=== PATIENT | male | born 1940 | race Caucasian/White ===

== ENCOUNTER → 2019-11-10 08:11 | Outpatient (CLI) | payer MEDICARE ==
[2014-11-17 11:31] VITALS: BMI 27.8
[~2019-11-10 08:11] MED LIST: PRILOSEC20 MG PO
== END | disposition home or self-care (01) ==
LOC: D.HCCECHO 08:11
PROVIDERS: ATTEND Internal Medicine Cardiovascular Disease
DX: R01.1 Cardiac murmur, unspecified (principal); I20.9 Angina pectoris, unspecified

== ENCOUNTER 2019-11-18 12:03 | Outpatient (CLI) | payer MEDICARE ==
[~2019-11-18] VITALS: Ht 182.9 cm; Wt 94.8 kg
--- NOTE | ~2019-11-18 | HEMODYNAMI ---
PATIENT:MELANIE PORTER MEDICAL RECORD: [id number] : 42 LOCATION:[facility] ADMISSION DATE: 11/18/19 Generatedon:11/18/201916:29 Patient name: MELANIE PORTER Patient #: [id number] SSN: [id number] : 1940 Date of study: 11/18/2019 Page: Of Hemodynamic Procedure Report Patient Data Patient Demographics Procedure consent was obtained First Name: MELANIE Gender: Male Last Name: GERMAN : 1940 Patient #: [id number] Age: 79 year(s) Race: SSN: [id number] Additional ID: [id number] Contact details Address: [address] [address] State: [place]: [place] Zip code: [address] Past Medical History Allergies Allergen Reaction Date Comments Reported Aspirin 11/18/2019 Admission Admission Data Admission Date: 11/18/2019 Admission Time: 12:03 Arrival Date: 11/18/2019 Arrival Time: 0:00 Admit Source: Other Insurance Payor: Medicare [facility] #: [id number] Height (in.): 72 BSA: 2.17 (m2) Height (cm.): 182.88 BMI: 28.35 (kg/m2) Weight (lbs.): 209 Weight (kg.): 94.8 Lab Results Lab Result Date: 11/18/2019 Lab Result Time: 0:00 Biochemistry Name Units Result Min Max Creatinine mg/dl 1.1 --(--*-)-- 0.6 1.3 eGFR ml/min 69 *-(----)-- 90 120 NONAFRICAN CBC Name Units Result Min Max Hematocrit % 45.3 --(-*--)-- 42 54 Hemoglobin g/dl 15.1 --(-*--)-- 13.5 17.5 Procedure Procedure Types Cath Procedure Diagnostic Procedure LHC LH w/Coronaries Sedation Charges Moderate Sedation up to 15 minutes Procedure Description Procedure Date Procedure Date: 11/18/2019 Procedure Start Time: 16:19 Procedure End Time: 16:27 Procedure Staff Name Function John Parker MD Performing Physician Maegan Tucker RT Monitor Lavern Baker RT Scrub Tiffany Reese RN Nurse Procedure Data Cath Procedure Fluoroscopy Diagnostic fluoroscopy Total fluoroscopy Time: 0.9 time: 0.9 min min Diagnostic fluoroscopy Total fluoroscopy dose: 497 dose: 497 mGy mGy Contrast Material Contrast Material Type Amount (ml) Isovue 300 33 Entry Location Entry Primary Successful Side Size Upsize Upsize Entry Closure Head ccessful Closure Location (Fr) 1 (Fr) 2 (Fr) Remarks Device Remarks Radial Right 6 Fr Mechanical artery Short Compression Estimated blood loss: 10 ml Diagnostic catheters Device Type Used For End Catheter Placement DIAGNOSTIC [facility] 110cm 5 Ventriculography Fr catheter ([id number]) Procedure Complications No complications Procedure Medications Medication Administration Route Dosage 0.9% NaCl I.V. 100 ml/hr Oxygen etCO2 Nasal cannula 2 l/min Lidocaine 2% added to field 20 Heparin Flush Bag added to field 2 bags (1000units/500ml NS) Radial Cocktail added to field 1 syringe (Verapamil 2mg/Nitro 400mcg/Heparin 1500units) Versed I.V. 2 mg Fentanyl I.V. 50 mcg Hemodynamics Rest BSA: 2.17 (m2) O2 Consumption: Estimated: 286.06 (ml/min) O2 Consumption indexed : Estimated:131.82 (ml/min/m) Heart Rate: 116 (bpm) Pressure Samples Time Site Value (mmHg) Purpose Heart Use Rate(bpm) 16:23 LV 75/11,11 Snapshot 116 Gradients Valve Time Site Site Mean SEP/DFP Peak To Heart Use 1 2 (mmHg) (sec/min) Peak Rate (mmHg) (bpm) Aortic 16:23 LV AO 75 Snapshots Pre Cath Intra NCS Post Cath Vital Signs Time Heart Resp SPO2 etCO2 NIBP (mmHg) Rhythm Pain Sedation Rate (ipm) (%) (mmHg) Status Level (bpm) 16:06:47 54 15 98 17.9 Measuring SB 0 (11) 10(A) , No pain 16:07:02 54 15 97 13.4 142/83(120) SB 0 (11) 10(A) , No pain 16:11:24 53 10 98 15.6 141/82(122) SB 0 (11) 10(A) , No pain 16:15:42 52 12 98 33.5 145/84(108) SB 0 (11) 10(A) , No pain 16:19:50 52 13 97 19.3 125/82(103) SB 0 (11) 10(A) , No pain 16:24:10 55 13 98 31.3 105/70(84) SB 0 (11) 10(A) , No pain Medications Time Medication Route Dose Verified Delivered Reason Notes E ffectiveness by by 15:59:56 0.9% NaCl I.V. 100 John Allen used for ml/hr Keith Hugh procedure MD PEREZ 16:00:03 Oxygen etCO2 2 l/min John Guillena used for Nasal Keith Hugh procedure cannula MD PEREZ 16:00:09 Lidocaine 2% added 20ml John Lopez for local to vial [facility] anesthetic field MD MORE 16:00:12 Heparin Flush added 2 bags John Lopez used for Bag to [facility] procedure (1000units/500ml field MD MORE NS) 16:00:17 Radial Cocktail added 1 John Lopez used for (Verapamil to syringe [facility] procedure 2mg/Nitro field MD MORE 400mcg/Heparin 1500units) 16:13:48 Versed I.V. 2 mg John Tiffany for [facility] Angel Reese sedation MD PEREZ 16:13:55 Fentanyl I.V. 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 15:54:03 Lavern Baker RT(R) sent for patient. Start room use. 15:54:06 Time tracking: Regular hours (M-F 7:00 - 5:00) 15:54:10 Plan of Care:Hemodynamics will remain stable., Cardiac rhythm will remain stable., Comfort level will be maintained., Respiratory function will remain adequate., Patient/ family verbilizes understanding of procedure., Procedure tolerated without complication., Recovers from procedure without complications.. 15:54:17 Patient received from Pre/Post Procedure Room to [facility] 1 Alert and oriented. Tansferred to table in Supine position. 15:54:18 Warm blankets applied, and jose hugger turned on for patient comfort. 15:54:19 Correct patient and procedure confirmed by team. 15:54:19 ECG and BP/O2 sat monitors applied to patient. 15:54:22 Full Disclosure recording started 15:54:26 H&P Date Dictated: 11/18/2019 Within 30 days and on chart.. 15:54:28 Pre-procedure instructions explained to patient. 15:54:29 Pre-op teaching completed and patient verbalized understanding. 15:54:37 Family in patients room. 15:54:43 Patient NPO since Midnight. 15:54:58 Patient allergic to Aspirin 15:55:09 Is the patient allergic to Iodine/contrast media? No. 15:55:11 Was the patient premedicated? N/A 15:55:13 Is patient on blood thinner?No 15:55:57 Patient diabetic? No. 15:55:58 If diabetic: On Metformin? N/A 15:56:18 Previous problem with sedation/anesthesia? No ? 15:56:24 Snore? No 15:56:26 Sleep apnea? No 15:56:27 Deviated septum? No 15:56:29 Opens mouth fully? Yes 15:56:35 Sticks out tongue? Yes 15:56:37 Airway obstruction? No ? 15:56:40 Dentures? No ? 15:59:56 0.9% NaCl 100 ml/hr I.V. was administered by Tiffany Reese RN; used for procedure; Verbal order read back and verified. 16:00:03 Oxygen 2 l/min etCO2 Nasal cannula was administered by Tiffany Reese RN; used for procedure; Verbal order read back and verified. 16:00:09 Lidocaine 2% 20ml vial added to field was administered by John Parker MD; for local anesthetic; Verbal order read back and verified. 16:00:12 Heparin Flush Bag (1000units/500ml NS) 2 bags added to field was administered by John Parker MD; used for procedure; Verbal order read back and verified. 16:00:17 Radial Cocktail (Verapamil 2mg/Nitro 400mcg/Heparin 1500units) 1 syringe added to field was administered by John Parker MD; used for procedure; Verbal order read back and verified. 16:00:32 Pre procedure: right radial pulse 2+ Normal; easily identifiable; not easily obliterated 16:00:35 Modified Meir's test Radial < 7 seconds 16:00:38 Patient pain scale 0/10 ?. 16:00:47 IV patent on arrival in left hand with 0.9% NaCl at [facility]. 16:: Lab Result : Creatinine 1.1 mg/dl 16:: Lab Result : eGFR NONAFRICAN 69 ml/min 16:: Lab Result : Hematocrit 45.3 % 16:: Lab Result : Hemoglobin 15.1 g/dl 16:: Lab results completed and on chart. 16:01:40 Stress Test: no; N/A ? 16:01:47 Right Radial & Right Groin area was prepped with chlora-prep and draped in sterile fashion 16::48 Alarms reviewed by RJavier N. 16::48 Sharps counted by scrub and verified by R.N. 16::29 Arrival Date: 11/18/2019 12:00:00 AM 16:04:51 Insurance Payor : Medicare 16:04:52 Admit Source: Other 16:04:58 Vital chart was started 16:05:06 Patient Height : 72 inches 16:05:11 Patient Weight : 209 lbs 16:11:22 Diagnostic Cath Status : Elective 16:11:43 --------ALL STOP TIME OUT------ 16:11:44 Final Timeout: patient, procedure, and site verified with staff and physician. All members of the team are in agreement. 16:11:46 Right Radial & Right Groin site verified by team. 16:11:49 Fire Safety Assessment: A--An alcohol-based skin anteseptic being used preoperatively., C--Open oxygen or nitrous oxide is being used., D--An ESU, laser, or fiber-optic light is being used. 16:11:54 Physical assessment completed. ASA score P 2 - A patient with mild systemic disease as per John Parker MD. 16:12:11 2) 60-89 Mildly reduced kidney function, and other findings (as for stage 1) point to kidney disease. 16:12:14 Maximum allowable contrast dose (3.7 X eGFR X 0.75)191 ml. 16:12:19 Sedation plan: IV Moderate Sedation Medication:Versed, Fentanyl 16:12:48 Use device set Radial Dx or PCI 16:12:56 ACIST Syringe (01603) opened to sterile field. 16:12:57 Medline Cath Pack ([id number]) opened to sterile field. 16:12:57 Bag Decanter (2002) opened to sterile field. 16:12:58 ACIST Hand Control (22887) opened to sterile field. 16:12:58 ACIST Manifold (60260) opened to sterile field. 16:13:00 MBrace Wrist Support ([id number]) opened to sterile field. 16:13:04 EMERALD Guide Wire (502-904) opened to sterile field. 16:13:05 SHEATH 6FR RAIN (3703592) opened to sterile field. 16:13:48 Versed 2 mg I.V. was administered by Tiffany Reese RN; for sedation; Verbal order read back and verified. 16:13:55 Fentanyl 50 mcg I.V. was administered by Tiffany Reese RN; for sedation; Verbal order read back and verified. 16:18:00 Procedure started. 16:19:08 Local anesthetic to right radial artery with Lidocaine 2% by John Parker MD.INITIAL ACCESS ONLY 16:20:25 Zero performed for pressure channel P1 16:20:29 Zero performed for pressure channel P1 16:20:32 Zero performed for pressure channel P1 16:21:31 A 6 Fr Short sheath was inserted into the Right Radial artery 16:21:36 J wire advanced. 16:22:54 A DIAGNOSTIC [facility] 110cm 5 Fr catheter (563970) was advanced over the wire and used for Ventriculography. 16:23:29 LV angiography performed. 16:24:19 EF : 55 % 16:24:22 LCA angiography performed. 16:24:45 RCA angiography performed. 16:24:53 ZEPHYR REGULAR TR BAND (491451) opened to sterile field. 16:25:02 Catheter removed. 16:25:19 Sheath removed intact; hemostasis achieved with Mechanical Compression to the Right Radial artery. 16:25:23 Procedure ended.(Physican Out) 16:25:39 Fluoroscopy time 00.90 minutes. 16:25:43 Fluoroscopy dose: 497 mGy 16:25:43 Flurop Dose total: 497 16:25:48 Dose Area Product 20030 mGy/cm. 16:25:51 Contrast amount:Isovue 300 33ml. 16:25:53 Maximum allowable dose exceeded? No. 16:25:55 Sharps counted by scrub and verified by R.N. 16:25:57 Jefferson band inflated with 10cc of air. 16:26:07 Post Procedure Pulses reassessed and unchanged 16:26:11 Post-procedure physical assessment completed. ASA score P 2 - A patient with mild systemic disease as per John Parker MD. 16:26:15 Post procedure rhythm: unchanged. 16:26:18 Estimated blood loss: 10 ml 16:26:27 Post procedure instruction explained to patient.Patient verbalizes understanding. 16:26:51 Procedure type changed to Cath procedure, Diagnostic procedure, LHC, C w/Coronaries, Sedation Charges, Moderate Sedation up to 15 minutes 16:26:52 Procedure and supply charges have been captured, reviewed, submitted and are correct. 16:27:22 Procedure Complication : No complications 16:27:27 Vital chart was stopped 16:27:29 [facility] Findings: mild to moderate CAD (<70%) 16:27:31 Operative report dictated upon procedure completion. 16:27:32 See physician's report for complete and final results. 16:27:33 Report given to Pre/Post Procedure Room. 16:27:36 Patient transfered to Pre/Post Procedure Room with Stretcher. 16:27:38 Procedure ended. 16:27:38 Full Disclosure recording stopped 16:27:41 End room use (Document Last) Device Usage Item Name Manufacture Quantity Catalog Hospital Part Current Minima l Lot# / Number Charge Number Stock Stock Serial# Code ACIST Acist 1 46039 [id number] 20 Syringe Medical (44599) Systems Inc Medline Medline 1 [id number] 27079 809933 5 Cath Pack ([id number]) Bag Microtek 1 530377 01570 127866 5 Decanter Medical Inc. () ACIST Hand Acist 1 96135 475362 340780 291805 5 Control Medical (74029) Systems Inc ACIST Acist 1 34885 589651 283642 303593 5 Manifold Medical (55896) Systems Inc MBrace Advanced 1 [id number] 840877 90229 324351 5 Wrist Vascular Support Dynamics ([id number]) [facility] 1 613-883 142914 966789 186219 5 Guide Wire [facility] (579-078) SHEATH 6FR Cardinal 1 [id number] 060290 4128183 249488 5 [facility] (2623086) DIAGNOSTIC Terumo 1 40-8675 713139 893655 041626 5 [facility] 110cm 5 Fr catheter (229395) ZEPHYR Cardinal 1 082057 928826 2133026 304208 5 REGULAR [facility] Health BAND (384444) Signature Audit Angier Stage Time Signature Unsigned Intra-Procedure 11/18/2019 Maegan Tucker 4:28:13 PM RT(R) Intra-Procedure 11/18/2019 Tiffany Reese 4:28:35 PM RN Intra-Procedure 11/18/2019 John Lau 4:29:00 PM Angel [id number] [place] [address]
[2019-11-18] MEDS ORDERED: MULTI-DAY VITAM1 TAB PO (12:57)
[2019-11-18 13:21] VITALS: BP 144/87; Ht 182.9 cm; Wt 94.8 kg
[2019-11-18 13:40] LABS: BASOPHILS 0.5 % (0-2); EOSINOPHILS 1.6 % (0-7); HEMATOCRIT 45.3 % (42.0-54.0); HEMOGLOBIN 15.1 g/dL (13.5-17.5); IMMATURE GRANULOCYTES 0.3 % (0-5); LYMPHOCYTES 23.5 % (15-50); MCH 30.6 pg (26.0-34.0); MCHC 33.3 g/dL (31.0-37.0); MCV 91.7 fL (80.0-100.0); MEAN PLATELET VOLUME 10.4 fL (7.4-10.4); MONOCYTES 14.6 % (2-11); NEUTROPHILS 59.5 % (40-80); PLATELET COUNT 219 10x3/uL (130-400); RBC 4.94 10x6/uL (4.20-6.10); RDW 12.8 % (11.5-14.5); WBC 5.8 10x3/uL (4.8-10.8)
[2019-11-18 13:47] LABS: ANION GAP 11.6 mmol/L (8-16); CALCIUM 8.9 mg/dL (8.5-10.1); CARBON DIOXIDE 25.3 mmol/L (21.0-32.0); CHOL - HDL RATIO 3.7 ratio (2.3-4.9); CREATININE - SERUM 1.1 mg/dL (0.6-1.3); LDL-HDL RATIO 2.1 ratio (1.5-3.5); POTASSIUM - SERUM 3.9 mmol/L (3.5-5.1)
--- NOTE | 2019-11-18 16:40 | NUR ---
PT RECEIVED VIA STRETCHER BACK TO ROOM FROM [employer] SUPERVISOR FOR RECOVERY. PT DROWSY BUT VERBALLY AROUSABLE. PT DENIES PAIN OR DISCOMFORT. IV PATENT INFUSING VIA ORDERS TO L ARM. PT PLACED ON CARDIAC MONITORS, O2 VIA NC AT 1L. HR SB, RATE 52, BP 135/77, RR 17, SAT 95. ZYPHER BAND AND IMMOBILIZER TO R ARM/WRIST. NO BLEEDING OR S/S HEMATOMA NOTED. ARM PINK AND WARM, CAP REFILL BRISK. DR MERIDA AT DISCUSSED W PT AND FRIEND THE PROCEDURE RESULTS. CALL LIGHT IN REACH.
--- NOTE | 2019-11-18 17:00 | NUR ---
ZYPHER BAND AND IMMOBILIZER IN PLACE, NO BLEEDING OR S/S HEMATOMA NOTED. VSS. CALL LIGHT IN REACH
--- NOTE | 2019-11-18 17:37 | NUR ---
3 CC AIR REMOVED FROM Z BAND, NO BLEEDING NOTED. NO S/S HEMATOMA. SANDWICH AND COFFEE SERVED. VSS. CALL LIGHT IN REACH. O2 REMOVED, SAT 92 ON ROOM AIR.
--- NOTE | 2019-11-18 18:02 | NUR ---
3 ADD'L CC AIR REMOVED FROM Z BAND, NO BLEEDING NOTED. PT DENIES PAIN OR NEEDS AT THIS TIME. CALL LIGHT REMAINS IN REACH
--- NOTE | 2019-11-18 18:25 | NUR ---
DISCHARGE INSTRUCTIONS REVIEWED W PT AND FRIEND, THEY VERBALIZED UNDERSTANDING. IV REMOVED W CATH INTACT, MONITORS REMOVED. ZBAND AND IMMOBILIZER IN PLACE, NO BLEEDING NOTED. PT UP TO DRESS FOR DISCHARGE.
--- NOTE | 2019-11-18 18:35 | NUR ---
ZBAND AND REMAINING AIR REMOVED W/O BLEEDING. 2X2 AND SM TEGADERM DRESSING APPLIED. PT DISCHARGED VIA WC TO FRIEND WAITING IN PRIVATE VEHICLE. PT HAD ALL BELONGINGS AND DISCHARGE PAPERWORK
--- NOTE | 2019-11-19 10:52 | OP ---
PATIENT NAME: MELANIE PORTER MEDICAL RECORD: [id number] :42 LOCATION:[facility] ADMISSION DATE: SURGEON: MORRIS MERIDA MD DATE OF OPERATION: 11/18/2019 PROCEDURE: Left heart catheterization, selective coronary angiography, right radial approach. CATHETERS: Radial sheath, [place] catheter. The patient returned to rodriges. Sheath was removed. TR band was placed. FINDINGS: Left ventriculography in 30-degree CABRERA view: Normal wall motion and normal systolic function. CORONARY ANATOMY: LEFT MAIN: Left main is free of disease. LAD: Free of disease in the diagonal system. CIRCUMFLEX: Free of disease in the marginal system. RIGHT CORONARY ARTERY: Dominant artery, gives rise to PDA, free of disease. IMPRESSION: Normal left ventricular systolic function and normal coronary anatomy. TRANSINT:[id number] Voice Confirmation ID: [id number] DOCUMENT ID: [id number] MORRIS MERIDA MD at 1052 CC: [id number] DICTATION DATE: 11/18/19 1635 GROUNDMAN: 11/19/19 0127 DEP CLI 11/18/19 [facility] [address] [place] [address]
== END 2019-11-18 18:35 | disposition home or self-care (01) ==
LOC: D.CATH 12:03
PROVIDERS: ATTEND Internal Medicine Interventional Cardiology
DX: R06.00 Dyspnea, unspecified (principal); I20.9 Angina pectoris, unspecified; R94.31 Abnormal electrocardiogram [ECG] [EKG]; R01.1 Cardiac murmur, unspecified